=== PATIENT | female | born 1950 | race Caucasian/White ===

== ENCOUNTER 2020-08-06 15:17 | Emergency (ER) | payer MEDICARE, SELFPAY ==
[2020-08-06 15:25] VITALS: BP 143/84; PULSE 69; RESP 18; TEMP 36.5; O2SAT 98; BMI 20.9
--- NOTE | 2020-08-06 15:49 | CT_ITS ---
WS: [id number] CT HEAD NONCONTRAST HISTORY: fall, head injury, bilateral raccoon eyes TECHNIQUE: Contiguous axial imaging performed through the brain in 2.5 mm imaging. Bone and soft tiss ue windows. Sagittal and coronal reformats reviewed. All CT scans at [facility] use at le ast one of these dose optimization techniques: automated exposure control; mA and/or kV adjustment pe r patient size (includes targeted exams where dose is matched to clinical indication); or iterative r econstruction. DLP: 755.08 mGy.cm COMPARISON: None available. No acute intracranial hemorrhage, midline shift or mass effect. No atrophy or prior infarcts or herniation. Ventricles: Normal size with no hydrocephalus. Small amount calcium in the intracranial carotid arteries. There is no air at the skull base. No frac tures are identified. Paranasal sinuses: As visualized are clear. Mastoid air cells: Well pneumatized. Calvarium and scalp: Skull is intact with no soft tissue edema or swelling. CT/CT head wo con* [id number] IMPRESSION: Negative head CT. No air at the skull base or secondary findings of skull base fracture.
[2020-08-06 15:59] VITALS: BP 127/62; PULSE 73; RESP 18; O2SAT 99
[2020-08-06 16:53] VITALS: BP 127/67; PULSE 84; RESP 18; O2SAT 95
--- NOTE | 2020-08-06 16:59 | W.ED.SEIZURE ---
HPI - Seizure General: Chief Complaint: Seizure Stated Complaint: SEIZURE, HEAD INJURY, POSS BRAIN BLEEDING Time Seen by Provider: 08/06/20 15:39 Source: patient and family () Mode of arrival: ambulatory Limitations: no limitations History of Present Illness: HPI Narrative: The patient is a 69-year-old female with a history of epilepsy. She has had seizures for at least 20 years. She said from about April of last year her seizures are more frequent and have been poorly controlled. She is being worked up to see if he can identify the cause of the change in the frequency of her seizures. 7 days ago she had another episode of seizure and fell and hit her head on steps. She may have lost consciousness for a few seconds. Her was in the same room as she was when she had the seizure, however he did not actually witness the seizure. The patient has had a headache since then but no nausea, no vomiting, no change in level of consciousness. She has an unsteady gait but that has been for several months and it is unchanged. Her had appointments with the senior qa engineer and high school special education teacher today on she accompanied him to those appointments. When the high school special education teacher and senior qa engineer separately saw her and that she had periorbital ecchymosis the advised that she come to the emergency department urgently to be evaluated for possible basal skull fracture. She is therefore here to be evaluated for this. Seizure History: Yes Place: Home Associated symptoms: Deny chills or fever(s) Review of Systems General: Reports: 10 or more systems reviewed and unremarkable except in HPI and below Const: Denies: fever(s), chills or body aches Eyes: Denies: change in vision or blurry vision ENMT: Denies: throat pain, enlarged tonsils, odynophagia, hoarseness, mouth pain or swelling of lips/tongue Card: Denies: palpitations, irregular heart rhythm, edema or swelling of feet/ankles Resp: Denies: dyspnea, productive cough or non-productive cough GI: Denies: abdominal pain, nausea or vomiting : Denies: flank pain, difficulty voiding, dysuria, urinary frequency, urinary urgency or urinary hesitancy Musc: Denies: neck pain, back pain or extremity swelling Skin/Breast: Denies: rash, pruritus or erythema Neuro: Reports: headache(s); Denies: numbness in extremities or weakness in extremities Endo: Denies: polyuria, polydipsia or tired all the time Physical Exam Const: COMMON NORMALS: no acute distress, average body habitus, patient oriented x3, no limitations, healthy appearing, alert and well nourished HENMT: COMMON NORMALS: normocephalic, atraumatic and moist oral mucous membranes HEAD & SCALP: normocephalic and atraumatic Eye: COMMON NORMALS: Equal, round and reactive pupils present, EOMs intact bilaterally, conjunctivae normal and no scleral icterus PERIORBITAL: periorbital findings abnormal positive bilateral periorbital ecchymosis CONJUNCTIVA: Yes conjunctivae normal PUPIL: Yes Equal, round and reactive pupils present Neck/C-Spine: COMMON NORMALS: full ROM, supple, no meningeal signs, no JVD and No carotid bruits Chest: COMMONS NORMALS: normal inspection of the chest and normal palpation of entire chest wall Resp: COMMON NORMALS: normal respiratory effort, No retractions, No use of accessory muscles, clear to auscultation bilaterally and percussion normal AUSCULTATION: clear to auscultation bilaterally PERCUSSION: percussion normal Cardio: COMMON NORMALS: no JVD, regular rate, regular rhythm, S1 normal heart sound present, S2 normal heart sound present, No gallops present (Cardio), No clicks present (Cardio), No murmurs present (Cardio), No rub (Cardio) and Peripheral pulses 2+ throughout RATE: regular rate RHYTHM: regular rhythm HEART SOUNDS: S1 normal heart sound present and S2 normal heart sound present PERIPHERAL PULSES: Peripheral pulses 2+ throughout GI: COMMON NORMALS: Normal to inspection, nondistended, normoactive bowel sounds present, Soft to palpation, non-tender, No hepatosplenomegaly present, no masses and no bruits PALPATION: Yes Soft to palpation and Yes No hepatosplenomegaly present : COMMON NORMALS: Yes no CVA tenderness BLADDER/KIDNEY EXAM: Yes no CVA tenderness Back/Pelvis: COMMON NORMALS: no CVA tenderness Extremity: COMMON NORMALS: normal to inspection, full ROM, capillary refill normal, no calf tenderness and no pedal edema Neuro: COMMON NORMALS: patient oriented x3 SENSORIUM/ORIENTATION: Yes alert MENINGEAL SIGNS: Yes no meningeal signs Skin: COMMON NORMALS: no rashes or lesions noted, no wounds, turgor normal, no jaundice, no petechiae and no mottling GENERAL SKIN EXAM: no rashes or lesions noted and turgor normal Course Reevaluation(s): Reevaluation #1: Discussed significant findings with her. Negative for basal skull fracture or intracranial hemorrhage. We will discharge her home with no new orders. She voiced understanding and is in agreement with the plan. Time: 17:00 Vital Signs: Vital signs: Vital Signs Temperature 97.7 F 08/06/20 15:25 Pulse Rate 64 08/06/20 17:13 Respiratory Rate 18 08/06/20 17:13 Blood Pressure 115/59 08/06/20 17:13 Pulse Oximetry 97 08/06/20 17:13 MDM - Seizure MDM Narrative: Medical decision making narrative: 69-year-old female who sustained a fall following a seizure 1 week ago and was advised to come to the emergency department today because she has bilateral periorbital ecchymoses. There were concerns that she may have had a basal skull fracture. Evaluation in the ED is unremarkable and a CT scan of the head was negative for basal skull fracture or intracranial hemorrhage. She is therefore discharged home with no new orders. Medical Records: Attestation: I reviewed the patient's medical records. Imaging Data^: CT Head: Attestation: I personally reviewed and interpreted this imaging study as follows: Radiologist's impression: [address] [address] [address] Scan Report Signed Patient: Tremaine RIOS #: [id number] : 2Acct#:[id number] Age/Sex: 69 / FADM Date: 08/06/20 Loc: ERRoom/Bed: Attending Dr: Ordering Provider/Ordering MD: Jeramie Abarca MD, [facility] Date of Service: 08/06/20 Procedure(s): CT head wo con* [id number] Accession Number(s): [id number] Report Number: [id number] WS: [id number] CT HEAD NONCONTRAST HISTORY: fall, head injury, bilateral raccoon eyes TECHNIQUE: Contiguous axial imaging performed through the brain in 2.5 mm imaging. Bone and soft tissue windows. Sagittal and coronal reformats reviewed. All CT scans at [facility] use at least one of these dose optimization techniques: automated exposure control; mA and/or kV adjustment per patient size (includes targeted exams where dose is matched to clinical indication); or iterative reconstruction. DLP: 755.08 mGy.cm COMPARISON: None available. No acute intracranial hemorrhage, midline shift or mass effect. No atrophy or prior infarcts or herniation. Ventricles: Normal size with no hydrocephalus. Small amount calcium in the intracranial carotid arteries. There is no air at the skull base. No fractures are identified. Paranasal sinuses: As visualized are clear. Mastoid air cells: Well pneumatized. Calvarium and scalp: Skull is intact with no soft tissue edema or swelling. CT/CT head wo con* [id number] IMPRESSION: Negative head CT. No air at the skull base or secondary findings of skull base fracture. Dictated By:Sherrill Moya DO Signed By:Sherrill Moya DOSigned Date/Time:08/06/201623 DD/ 21 Discharge Plan Discharge Patient Disposition: Home Clinical Impression: Mild closed head injury Qualifiers: Encounter type: initial encounter Qualified Code(s): S09.90XA - Unspecified injury of head, initial encounter Periorbital ecchymosis Qualifiers: Encounter type: initial encounter Laterality: right Qualified Code(s): S00.11XA - Contusion of right eyelid and periocular area, initial encounter Periorbital ecchymosis of left eye Qualifiers: Encounter type: initial encounter Qualified Code(s): S00.12XA - Contusion of left eyelid and periocular area, initial encounter Condition: Stable Prescriptions: Continued trazodone 50 mg tablet 50 mg PO BEDTIME RF: 0 levothyroxine 88 mcg tablet 88 mcg PO DAILY RF: 0 famotidine 20 mg tablet 20 mg PO BID RF: 0 lamotrigine 100 mg tablet See Rx Instructions .ROUTE .COMPLEX RF: 0 clonazepam 0.5 mg tablet,disintegrating 0.5 mg PO DAILY PRN (Reason: Seizure Activity) RF: 0 Discharge Orders: Discharge ED (Routine); Ordered 08/06/20 Ordered By: Jeramie Abarca Referrals: Prosper Rouse MD [Primary Care Provider] - 1-3 days Discharge Diet: Usual diet Discharge Activity: Increase activity as tolerated Patient Instructions: Minor Head Injury (ED), Contusion in Adults (ED) Activity Restrictions/Additional Instructions: Return for any new or worsening symptoms. Follow-up with your primary care provider within 3 days. Continue your home medications. Coding Level of Care Code ED Meteorological Engineer for Emilia Juarez
[2020-08-06 17:00] VITALS: BP 115/59; PULSE 64; RESP 18; O2SAT 97
[2020-08-06 17:13] VITALS: BP 115/59; PULSE 64; RESP 18; O2SAT 97
== END 2020-08-06 17:16 | disposition home or self-care (01) ==
PROVIDERS: Emergency Provider Family Medicine; PCP Internal Medicine
DX: S09.8XXA Other specified injuries of head, initial encounter (principal); S00.11XA Contusion of right eyelid and periocular area, initial encounter; S00.12XA Contusion of left eyelid and periocular area, initial encounter; X58.XXXA Exposure to other specified factors, initial encounter
CPT/HCPCS: 12345; 70450; 99283

== ENCOUNTER 2021-02-11 13:45 | Outpatient (RCR) | payer MEDICARE, SELFPAY | END 2021-03-02 23:59 | disposition home or self-care (01) | LOC: SPT 13:45 | PROVIDERS: PCP Internal Medicine; Referring Provider Psychiatry & Neurology Neurology; Visit Provider Psychiatry & Neurology Neurology | DX: R26.89 Other abnormalities of gait and mobility (principal) | CPT/HCPCS: 97110; 97112; 97161; 97530 ==

== ENCOUNTER 2021-03-03 06:00 | Outpatient (RCR) | payer MEDICARE, SELFPAY | END 2021-04-01 23:59 | disposition home or self-care (01) | LOC: SPT 06:00 | PROVIDERS: PCP Internal Medicine; Referring Provider Psychiatry & Neurology Neurology; Visit Provider Psychiatry & Neurology Neurology | DX: R26.89 Other abnormalities of gait and mobility (principal) | CPT/HCPCS: 97110; 97112; 97530 ==

== ENCOUNTER 2021-04-02 06:00 | Outpatient (RCR) | payer MEDICARE, SELFPAY | END 2021-05-02 23:59 | disposition home or self-care (01) | LOC: SPT 06:00 | PROVIDERS: PCP Internal Medicine; Referring Provider Psychiatry & Neurology Neurology; Visit Provider Psychiatry & Neurology Neurology | DX: R26.89 Other abnormalities of gait and mobility (principal) | CPT/HCPCS: 97110; 97112; 97530 ==

== ENCOUNTER 2021-05-03 06:00 | Outpatient (RCR) | payer MEDICARE, SELFPAY | END 2021-06-01 23:59 | disposition home or self-care (01) | LOC: SPT 06:00 | PROVIDERS: PCP Internal Medicine; Visit Provider Psychiatry & Neurology Neurology | DX: R26.89 Other abnormalities of gait and mobility (principal) | CPT/HCPCS: 97110; 97112; 97530 ==

== ENCOUNTER 2021-06-02 06:00 | Outpatient (RCR) | payer MEDICARE, SELFPAY | END 2021-07-02 23:59 | disposition home or self-care (01) | LOC: SPT 06:00 | PROVIDERS: PCP Internal Medicine; Visit Provider Psychiatry & Neurology Neurology | DX: R26.89 Other abnormalities of gait and mobility (principal) | CPT/HCPCS: 97110; 97112; 97530 ==

== ENCOUNTER 2021-07-03 06:00 | Outpatient (RCR) | payer MEDICARE, SELFPAY | END 2021-08-02 23:59 | disposition home or self-care (01) | LOC: SPT 06:00 | PROVIDERS: PCP Internal Medicine; Visit Provider Psychiatry & Neurology Neurology | DX: R26.89 Other abnormalities of gait and mobility (principal) | CPT/HCPCS: 97110; 97112; 97530 ==

== ENCOUNTER 2021-08-03 06:00 | Outpatient (RCR) | payer MEDICARE, SELFPAY | END 2021-08-30 23:59 | disposition home or self-care (01) | LOC: SPT 06:00 | PROVIDERS: PCP Internal Medicine; Visit Provider Psychiatry & Neurology Neurology | DX: R26.89 Other abnormalities of gait and mobility (principal) | CPT/HCPCS: 97110; 97112; 97530 ==

== ENCOUNTER 2021-08-27 14:11 | Emergency (ER) | payer MEDICARE, SELFPAY ==
[2021-08-27 14:23] VITALS: BP 116/81; PULSE 54; TEMP 36.5; O2SAT 98
[2021-08-27 14:26] VITALS: BP 116/81; PULSE 54; RESP 18; TEMP 36.5; O2SAT 98; BMI 22.3
--- NOTE | 2021-08-27 14:38 | XR_ITS ---
WS: [id number] Exam: XR wrist RT min 3V* 07000 Date/Time of Exam: 08/27/2021 2:40 PM Reason For Exam: pain There are no fractures, soft tissue swelling, or unusual calcifications. The wrist shows normal bony alignment. There is no irregularity of the bony architecture. XR/XR wrist RT min 3V* 54030 IMPRESSION: Negative right wrist.
--- NOTE | 2021-08-27 14:38 | CT_ITS ---
WS: [id number] CT HEAD TECHNIQUE: Noncontrast CT of the head obtained from the skullbase to the vertex. CLINICAL INFORMATION: fall COMPARISON: None. DLP: 742.[address] scans at [facility] use at least one of these dose optimization techniques: automated e xposure control; mA and/or kV adjustment per patient size (includes targeted exams where dose is matc hed to clinical indication); or iterative reconstruction. FINDINGS: No evidence of intracranial hemorrhage or mass effect. Ventricular system and basal cisterns are cabrera nt. Mild small vessel changes with mild parenchymal volume loss. No extra-axial fluid collections. No evidence of mass or mass effect. Normal merino-white differentiation. Paranasal sinuses and mastoid air cells are well aerated. .Normal visualized soft tissues. CT/CT head wo con* [id number] IMPRESSION: 1. No evidence of intracranial hemorrhage or mass effect. 2. Normal merino-white differentiation. 3. Mild small vessel changes with mild parenchymal volume loss. 4. No acute intracranial findings.
--- NOTE | 2021-08-27 14:44 | ED_ITS ---
HPI - Fall General: Chief Complaint: Fall Stated Complaint: HIT HEAD DURING A SIEZURE Time Seen by Provider: 08/27/21 14:31 Source: patient Mode of arrival: ambulatory Limitations: no limitations History of Present Illness: 70-year-old female presents emergency room from home she has a history of seizures she has been falling more more often infections been going to physical therapy for gait instability rehab. She does not think he had a seizure today but she did stood up got lightheaded dizzy and fell states she truck struck her forehead she has no lacerations there is no loss of consciousness.She has had similar episodes in the past but she showed me a picture recently where she had fallen and had significant facial bruising. She denies any chest pain lightheadedness or dizziness no recent illness. She is also complaining of some pain in her right breast although she has not noted obvious deformity. MD complaint: fall Onset (ago): minute(s) Fall from: standing Fall witnessed: yes, by family Place fall occurred: home Loss of consciousness: None Prolonged down time: no Symptoms prior to fall: lightheadedness Location of injury: head Severity: mild Quality: aching Associated symptoms-after fall: Reports difficulty walking (Chronic) and weakness; Denies abdominal pain, chest pain, confusion, headache(s), hematuria, lightheadedness, neck pain, numbness, short of breath or vertigo Review of Systems Const: Denies: fever(s), chills, body aches, change in appetite, fatigue or malaise ENMT: Denies: throat pain, ear or mastoid pain, nasal discharge or nasal congestion Card: Denies: chest pain or lightheadedness Resp: Denies: dyspnea, productive cough or non-productive cough GI: Denies: abdominal pain : Denies: hematuria Musc: Denies: neck pain Skin/Breast: Denies: rash or pruritus Neuro: Reports: difficulty walking (Chronic); Denies: headache(s), vertigo or confusion [facility] ED PFSH: Medical History Epilepsy Hypothyroidism Reflux esophagitis Social History Smoking and tobacco status: never smoked Alcohol intake: never Physical Exam Const: COMMON NORMALS: no acute distress GENERAL APPEARANCE: cooperative and comfortable ORIENTATION/CONSCIOUSNESS: Yes awake, Yes oriented to person, Yes oriented to place and Yes oriented to time HENMT: COMMON NORMALS: normocephalic, atraumatic, hearing grossly normal bilaterally, external ears normal, EAC's normal, TM's normal bilaterally, Normal nasal mucous membranes and turbinates present, moist oral mucous membranes and oropharynx normal HEAD & SCALP: normocephalic and atraumatic NOSE: Normal nasal mucous membranes and turbinates present EXTERNAL EAR: Yes external ears normal EXTERNAL AUDITORY CANAL: EAC's normal TYMPANIC MEMBRANE: TM's normal bilaterally Eye: COMMON NORMALS: Equal, round and reactive pupils present, EOMs intact bilaterally, conjunctivae normal and no scleral icterus CONJUNCTIVA: Yes conjunctivae normal PUPIL: Yes Equal, round and reactive pupils present Neck/C-Spine: COMMON NORMALS: full ROM, no lymphadenopathy, supple and no JVD Lymph: LYMPHATIC: no lymphadenopathy noted and no lymphedema noted Resp: COMMON NORMALS: normal respiratory effort, No retractions, No use of accessory muscles and clear to auscultation bilaterally AUSCULTATION: clear to auscultation bilaterally Cardio: COMMON NORMALS: no JVD, regular rate, regular rhythm and No murmurs present (Cardio) RATE: regular rate RHYTHM: regular rhythm GI: COMMON NORMALS: Soft to palpation and No hepatosplenomegaly present AUSCULTATION: Yes normoactive bowel sounds PALPATION: Yes Soft to palpation, No Tenderness to palpation present (GI), No Guarding due to palpation present (GI) and Yes No hepatosplenomegaly present Extremity: COMMON NORMALS: normal to inspection, capillary refill normal, no clubbing, cyanosis or edema, no calf tenderness and no pedal edema Neuro: SENSORIUM/ORIENTATION: Yes oriented to person, Yes oriented to place and Yes oriented to time Skin: COMMON NORMALS: no rashes or lesions noted GENERAL SKIN EXAM: no rashes or lesions noted Course Vital Signs: Vital signs: Vital Signs Temperature 97.7 F 08/27/21 14:26 Pulse Rate 66 08/27/21 15:43 Respiratory Rate 16 08/27/21 14:50 Blood Pressure 129/68 08/27/21 15:43 Pulse Oximetry 95 08/27/21 15:43 MDM - Fall Medical Decision Making Imaging negative reviewed imaging with the patient will discharge home she states she feels well at this time follow-up with her primary care doctor. I do not believe she had a seizure with this episode I think she simply fell. Medical Records I reviewed the patient's medical records. Lab Data I reviewed the patient's lab results. : 08/27/21 14:45 08/27/21 14:[address] 08/27/21 14:38 IMPRESSION: 1. No evidence of intracranial hemorrhage or mass effect. 2. Normal merino-white differentiation. 3. Mild small vessel changes with mild parenchymal volume loss. 4. No acute intracranial findings. Wrist X-Ray 08/27/21 14:38 IMPRESSION: Negative right wrist. Cervical Spine CT 08/27/21 14:51 IMPRESSION: No evidence of acute fracture or dislocation. Laboratory Results WBC 7.0 10^3/uL (4.0-10.0) 08/27/21 14:45 RBC 4.29 10^6/uL (4.1-5.3) 08/27/21 14:45 Hgb 12.8 g/dL (11.5-15.3) 08/27/21 14:45 Hct 38.9 % (37.0-47.0) 08/27/21 14:45 MCV 90.7 fl (81-99) 08/27/21 14:45 MCH 29.8 pg (28.0-34.0) 08/27/21 14:45 MCHC 32.9 g/dL (30.0-36.0) 08/27/21 14:45 RDW 12.6 % (12.1-15.1) 08/27/21 14:45 Plt Count 271 10^3/cmm (130-400) 08/27/21 14:45 MPV 10.0 fL (7.4-10.4) 08/27/21 14:45 Neut % (Auto) 69.5 % 08/27/21 14:45 Lymph % (Auto) 21.8 % 08/27/21 14:45 [place] % (Auto) 6.6 % 08/27/21 14:45 Eos % (Auto) 1.1 % 08/27/21 14:45 Baso % (Auto) 0.7 % 08/27/21 14:45 Neut # (Auto) 4.85 10^3/uL (1.8-7.7) 08/27/21 14:45 Lymph # (Auto) 1.5 10^3/uL (0.8-4.8) 08/27/21 14:45 [place] # (Auto) 0.5 10^3/uL (0.2-0.9) 08/27/21 14:45 Eos # (Auto) 0.1 10^3/uL (0.0-0.8) 08/27/21 14:45 Baso # (Auto) 0.1 10^3/uL (0.0-0.1) 08/27/21 14:45 Nucleated RBC % (auto) 0 % 08/27/21 14:45 Nucleated RBCs # 0.0 /100WBC 08/27/21 14:45 Sodium 143 mmol/L (136-145) 08/27/21 14:45 Potassium 4.2 mmol/L (3.5-5.1) 08/27/21 14:45 Chloride 106 mmol/L (98-107) 08/27/21 14:45 Carbon Dioxide 23 mmol/L (22-29) 08/27/21 14:45 Anion Gap 18.2 (5-19) 08/27/21 14:45 BUN 11 mg/dL (8-23) 08/27/21 14:45 Creatinine 1.0 mg/dL (0.5-0.9) H 08/27/21 14:45 GFR Calculation 55.0 mL/min (90-130) L 08/27/21 14:45 Glucose 97 mg/dL (65-115) 08/27/21 14:45 Calculated Osmolality 295 mOsm/kg (285-295) 08/27/21 14:45 Calcium 10.1 mg/dL (8.5-10.5) 08/27/21 14:45 Total Bilirubin 0.3 mg/dL (0.15-1.2) 08/27/21 14:45 AST 20 U/L (0-32) 08/27/21 14:45 ALT 14 U/L (0-33) 08/27/21 14:45 Alkaline Phosphatase 121 IU/L (35-105) H 08/27/21 14:45 Total Protein 6.6 g/dL (6.6-8.7) 08/27/21 14:45 Albumin 4.7 g/dL (3.5-5.2) 08/27/21 14:45 Globulin 1.9 g/dL (1.3-4.6) 08/27/21 14:45 Discharge Plan Discharge Patient Disposition: Home Clinical Impression: Fall, Epilepsy, Right wrist sprain Condition: Stable Prescriptions: No Action levothyroxine 88 mcg tablet 88 mcg PO DAILY 0RF famotidine 20 mg tablet 20 mg PO BID 0RF lamotrigine 100 mg tablet See Rx Instructions .ROUTE .COMPLEX 0RF Rx Instructions: 100 mg orally in the morning, 100 mg at lunch, 100 mg at dinner, 150 mg at bedtime clonazepam 0.5 mg tablet,disintegrating 0.5 mg PO DAILY PRN (Reason: Seizure Activity) 0RF clonazepam 0.5 mg tablet See Rx Instructions .ROUTE .COMPLEX 0RF Rx Instructions: 0.5 mg orally at 5pm and 1 mg orally at bedtime allopurinol 100 mg Tablet 50 mg PO DAILY 0RF Crestor 10 mg Tablet 10 mg PO DAILY 0RF Discharge Orders: Discharge ED (Routine); Ordered 08/27/21 Ordered By: Kristofer Zee Referrals: Prosper Rouse MD [Primary Care Provider] - Discharge Diet: Usual diet Discharge Activity: Limit activity as instructed Patient Instructions: Opioid Safety Coding Level of Care Code ED Seismograph Observer for Constanting Fwd Exam Comprehensive
[2021-08-27 14:50] VITALS: BP 151/80; PULSE 72; RESP 16; O2SAT 96
--- NOTE | 2021-08-27 14:51 | CT_ITS ---
WS: [id number] CT CERVICAL TRAUMA TECHNIQUE: Noncontrast CT of the cervical spine with coronal and sagittal reformatted images. CLINICAL INFORMATION: fall/trauma COMPARISON: None. DLP: 298.[address] scans at [facility] use at least one of these dose optimization techniques: automated e xposure control; mA and/or kV adjustment per patient size (includes targeted exams where dose is matc hed to clinical indication); or iterative reconstruction. FINDINGS: Straightening of the normal cervical lordosis. Mild spondylitic changes cervical spine with disc spac e narrowing worse at C4-C5 C5-C6 and C6-C7. Normal craniocervical junction. Normal C1-C2 articulation . Dens is normal in appearance. Normal occipital condyles. No high-grade spinal canal narrowing. Norm al C1 ring. No evidence of acute fracture or dislocation. Normal prevertebral soft tissues. Mastoids air cells are well aerated. CT/CT cervical spin wo con* [id number] IMPRESSION: No evidence of acute fracture or dislocation.
[2021-08-27 14:52] LABS: Basophils # 0.1 10^3/uL (0.0-0.1); Basophils % 0.7 %; Eosinophils # 0.1 10^3/uL (0.0-0.8); Eosinophils % 1.1 %; Hematocrit 38.9 % (37.0-47.0); Hemoglobin 12.8 g/dL (11.5-15.3); Lymphocytes # 1.5 10^3/uL (0.8-4.8); Lymphocytes % 21.8 %; Mean Corpuscular HGB Conc 32.9 g/dL (30.0-36.0); Mean Corpuscular Hemoglobin 29.8 pg (28.0-34.0); Mean Corpuscular Volume 90.7 fl (81-99); Monocytes # 0.5 10^3/uL (0.2-0.9); Monocytes % 6.6 %; Neutrophils # 4.85 10^3/uL (1.8-7.7); Neutrophils % 69.5 %; Nucleated Red Blood Cells % 0 %; Platelet Count 271 10^3/cmm (130-400); Red Blood Count 4.29 10^6/uL (4.1-5.3); Red Cell Distribution Width 12.6 % (12.1-15.1)
[2021-08-27 15:16] LABS: Alanine Aminotransferase 14 U/L (0-33); Albumin Level 4.7 g/dL (3.5-5.2); Alkaline Phosphatase 121 IU/L (35-105); Anion Gap 18.2 (5-19); Aspartate Amino Transferase 20 U/L (0-32); Blood Urea Nitrogen 11 mg/dL (8-23); Calcium 10.1 mg/dL (8.5-10.5); Carbon Dioxide 23 mmol/L (22-29); Chloride 106 mmol/L (98-107); Globulin 1.9 g/dL (1.3-4.6); Glucose 97 mg/dL (65-115); Osmolality Calculated 295 mOsm/kg (285-295); Potassium 4.2 mmol/L (3.5-5.1); Sodium 143 mmol/L (136-145); Total Bilirubin 0.3 mg/dL (0.15-1.2); Total Protein 6.6 g/dL (6.6-8.7)
[2021-08-27 15:43] VITALS: BP 129/68; PULSE 66; O2SAT 95
== END 2021-08-27 15:45 | disposition home or self-care (01) ==
PROVIDERS: Emergency Provider Family Medicine; PCP Internal Medicine
DX: G40.909 Epilepsy, unspecified, not intractable, without status epilepticus (principal); S63.501A Unspecified sprain of right wrist, initial encounter; W18.30XA Fall on same level, unspecified, initial encounter
CPT/HCPCS: 70450; 72125; 73110; 80053; 85025; 99283

== ENCOUNTER 2021-08-31 06:00 | Outpatient (RCR) | payer MEDICARE, SELFPAY | END 2021-09-30 23:59 | disposition home or self-care (01) | LOC: SPT 06:00 | PROVIDERS: PCP Internal Medicine; Visit Provider Psychiatry & Neurology Neurology | DX: R26.89 Other abnormalities of gait and mobility (principal) | CPT/HCPCS: 97110; 97112; 97530 ==

== ENCOUNTER 2021-09-16 06:00 | Outpatient (RCR) | payer MEDICARE, SELFPAY | END 2021-09-30 23:59 | disposition home or self-care (01) | LOC: SST 06:00 | PROVIDERS: PCP Internal Medicine; Referring Provider Psychiatry & Neurology Neurology; Visit Provider Psychiatry & Neurology Neurology | DX: G31.84 Mild cognitive impairment of uncertain or unknown etiology (principal) | CPT/HCPCS: 96125 ==

== ENCOUNTER 2021-10-01 06:00 | Outpatient (RCR) | payer MEDICARE, SELFPAY | END 2021-10-30 23:59 | disposition home or self-care (01) | LOC: SPT 06:00 | PROVIDERS: PCP Internal Medicine; Visit Provider Psychiatry & Neurology Neurology | DX: R26.89 Other abnormalities of gait and mobility (principal) | CPT/HCPCS: 97110; 97112 ==

== ENCOUNTER 2021-10-01 06:00 | Outpatient (RCR) | payer MEDICARE, SELFPAY | END 2021-10-30 23:59 | disposition home or self-care (01) | LOC: SST 06:00 | PROVIDERS: PCP Internal Medicine; Referring Provider Psychiatry & Neurology Neurology; Visit Provider Psychiatry & Neurology Neurology | DX: G31.84 Mild cognitive impairment of uncertain or unknown etiology (principal); R47.9 Unspecified speech disturbances | CPT/HCPCS: 92507 ==

== ENCOUNTER 2021-10-31 06:00 | Outpatient (RCR) | payer MEDICARE, SELFPAY | END 2021-11-30 23:59 | disposition home or self-care (01) | LOC: SPT 06:00 | PROVIDERS: PCP Internal Medicine; Visit Provider Psychiatry & Neurology Neurology | DX: R26.89 Other abnormalities of gait and mobility (principal) | CPT/HCPCS: 97110; 97112 ==

== ENCOUNTER 2021-10-31 06:00 | Outpatient (RCR) | payer MEDICARE, SELFPAY | END 2021-11-30 23:59 | disposition home or self-care (01) | LOC: SST 06:00 | PROVIDERS: PCP Internal Medicine; Referring Provider Psychiatry & Neurology Neurology; Visit Provider Psychiatry & Neurology Neurology | DX: G31.84 Mild cognitive impairment of uncertain or unknown etiology (principal); R41.841 Cognitive communication deficit | CPT/HCPCS: 92507 ==

== ENCOUNTER 2021-12-01 06:00 | Outpatient (RCR) | payer MEDICARE, SELFPAY | END 2021-12-30 23:59 | disposition home or self-care (01) | LOC: SST 06:00 | PROVIDERS: PCP Internal Medicine; Referring Provider Psychiatry & Neurology Neurology; Visit Provider Psychiatry & Neurology Neurology | DX: G40.319 Generalized idiopathic epilepsy and epileptic syndromes, intractable, without status epilepticus (principal); G31.84 Mild cognitive impairment of uncertain or unknown etiology | CPT/HCPCS: 92507 ==

== ENCOUNTER 2021-12-01 06:00 | Outpatient (RCR) | payer MEDICARE, SELFPAY | END 2021-12-30 23:59 | disposition home or self-care (01) | LOC: SPT 06:00 | PROVIDERS: PCP Internal Medicine; Visit Provider Psychiatry & Neurology Neurology | DX: R26.89 Other abnormalities of gait and mobility (principal) | CPT/HCPCS: 97110; 97112 ==

== ENCOUNTER 2021-12-31 06:00 | Outpatient (RCR) | payer MEDICARE, SELFPAY | END 2022-01-30 23:59 | disposition home or self-care (01) | LOC: SPT 06:00 | PROVIDERS: PCP Internal Medicine; Visit Provider Psychiatry & Neurology Neurology | DX: R26.89 Other abnormalities of gait and mobility (principal) | CPT/HCPCS: 97110 ==

== ENCOUNTER 2022-01-31 06:00 | Outpatient (RCR) | payer MEDICARE, SELFPAY | END 2022-02-02 15:17 | disposition home or self-care (01) | LOC: SPT 06:00 | PROVIDERS: PCP Internal Medicine; Visit Provider Psychiatry & Neurology Neurology | DX: R26.89 Other abnormalities of gait and mobility (principal) | CPT/HCPCS: 97110 ==

== ENCOUNTER 2022-01-31 06:00 | Outpatient (RCR) | payer MEDICARE, SELFPAY | END 2022-02-02 23:59 | disposition home or self-care (01) | LOC: SST 06:00 | PROVIDERS: PCP Internal Medicine; Referring Provider Psychiatry & Neurology Neurology; Visit Provider Psychiatry & Neurology Neurology | DX: G40.319 Generalized idiopathic epilepsy and epileptic syndromes, intractable, without status epilepticus (principal); G31.84 Mild cognitive impairment of uncertain or unknown etiology | CPT/HCPCS: 92507 ==

== ENCOUNTER 2022-12-07 08:19 | Outpatient (RCR) | payer MEDICARE, SELFPAY | END 2022-12-30 23:59 | disposition home or self-care (01) | LOC: SPT 08:19 | PROVIDERS: Visit Provider Physical Medicine & Rehabilitation | DX: M54.6 Pain in thoracic spine (principal) | CPT/HCPCS: 97110; 97161 ==

== ENCOUNTER 2022-12-31 06:00 | Outpatient (RCR) | payer MEDICARE, SELFPAY | END 2023-01-30 23:59 | disposition home or self-care (01) | LOC: SPT 06:00 | PROVIDERS: Visit Provider Physical Medicine & Rehabilitation | DX: M54.6 Pain in thoracic spine (principal) | CPT/HCPCS: 97110 ==

== ENCOUNTER 2023-01-31 06:00 | Outpatient (RCR) | payer MEDICARE, SELFPAY | END 2023-03-02 23:59 | disposition home or self-care (01) | LOC: SPT 06:00 | PROVIDERS: Visit Provider Physical Medicine & Rehabilitation | DX: M54.6 Pain in thoracic spine (principal) | CPT/HCPCS: 97110 ==

== ENCOUNTER 2023-03-03 06:00 | Outpatient (RCR) | payer MEDICARE, SELFPAY | END 2023-04-01 23:59 | disposition home or self-care (01) | LOC: SPT 06:00 | PROVIDERS: Visit Provider Physical Medicine & Rehabilitation | DX: M54.6 Pain in thoracic spine (principal) | CPT/HCPCS: 97110 ==

== ENCOUNTER 2023-04-02 06:00 | Outpatient (RCR) | payer MEDICARE, SELFPAY | END 2023-05-02 23:59 | disposition home or self-care (01) | LOC: SPT 06:00 | PROVIDERS: Visit Provider Physical Medicine & Rehabilitation | DX: M47.814 Spondylosis without myelopathy or radiculopathy, thoracic region (principal); M79.10 Myalgia, unspecified site; M40.204 Unspecified kyphosis, thoracic region; M47.812 Spondylosis without myelopathy or radiculopathy, cervical region | CPT/HCPCS: 97110 ==

== ENCOUNTER 2023-12-05 15:46 | Outpatient (RCR) | payer MEDICARE, SELFPAY | END 2023-12-31 23:59 | disposition home or self-care (01) | LOC: SPT 15:46 | PROVIDERS: PCP Internal Medicine; Visit Provider Physical Medicine & Rehabilitation | DX: M47.814 Spondylosis without myelopathy or radiculopathy, thoracic region (principal) | CPT/HCPCS: 97110; 97161 ==

== ENCOUNTER 2024-01-01 06:00 | Outpatient (RCR) | payer MEDICARE, SELFPAY | END 2024-01-31 23:59 | disposition home or self-care (01) | LOC: SPT 06:00 | PROVIDERS: PCP Internal Medicine; Visit Provider Physical Medicine & Rehabilitation | DX: M47.814 Spondylosis without myelopathy or radiculopathy, thoracic region (principal) | CPT/HCPCS: 97110 ==

== ENCOUNTER 2024-02-01 06:00 | Outpatient (RCR) | payer MEDICARE, SELFPAY | END 2024-03-02 23:59 | disposition home or self-care (01) | LOC: SPT 06:00 | PROVIDERS: PCP Internal Medicine; Visit Provider Physical Medicine & Rehabilitation | DX: M47.814 Spondylosis without myelopathy or radiculopathy, thoracic region (principal) | CPT/HCPCS: 97110 ==

== ENCOUNTER 2024-03-03 06:00 | Outpatient (RCR) | payer MEDICARE, SELFPAY | END 2024-04-01 23:59 | disposition home or self-care (01) | LOC: SPT 06:00 | PROVIDERS: PCP Internal Medicine; Visit Provider Physical Medicine & Rehabilitation | DX: M47.814 Spondylosis without myelopathy or radiculopathy, thoracic region (principal) | CPT/HCPCS: 97110 ==